=== PATIENT | female | born 1950 | race Caucasian/White ===

== ENCOUNTER → 2016-09-09 | Outpatient (CLI) | payer MEDICARE ==
[2016-09-09 15:16] LABS: ALT 51 U/L (9-52); AST 33 U/L (14-36); Blood Urea Nitrogen 14 mg/dL (7-17); C Reactive Protein <5.0 mg/L (<10.0); Non-African American GFR(MDRD) 56 (>60 ml/min/1.73 sqM)
[2016-09-09 17:20] LABS: Erythrocyte Sedimentation Rate 21 mm/hr (0-20)
[2016-09-10 00:04] LABS: Basophils # (A) 0.1 k/uL (0-0.2); Basophils % (A) 1 %; CHCM 33.1; Eosinophils # (A) 0.1 k/uL (0-0.7); Eosinophils % (A) 2 %; HCT 40.7 % (34.0-46.0); HDW 2.52; HGB 13.1 gm/dL (11.4-16.0); Luc # (Auto) 0.16; Luc % (Auto) 2; Lymphocytes # (A) 2.5 k/uL (1.0-4.8); Lymphocytes % (A) 34 %; MCH 29.4 pg (25.0-35.0); MCHC 32.3 g/dL (31.0-37.0); MCV 91.1 fL (80.0-100.0); Mean Platelet Volume 7.2; Monocytes # (A) 0.5 k/uL (0-1.0); Monocytes % (A) 6 %; Neutrophils # (A) 3.9 k/uL (1.3-7.7); Neutrophils % (A) 54 %; RBC 4.46 m/uL (3.80-5.40); WBC 7.2 k/uL (3.8-10.6); WBC (Perox) 7.16
== END | disposition home or self-care (01) ==
LOC: LABWHC1 14:38
PROVIDERS: ATTEND Internal Medicine Rheumatology
DX: N18.9 Chronic kidney disease, unspecified (principal); R77.0 Abnormality of albumin; M25.50 Pain in unspecified joint; Z79.1 Long term (current) use of non-steroidal anti-inflammatories (NSAID)
CPT/HCPCS: 36415; 82040; 82565; 84450; 84460; 84520; 85025; 85652; 86140

== ENCOUNTER → 2016-11-21 | Outpatient (CLI) | payer MEDICARE ==
[2016-11-21 11:53] LABS: Basophils # (A) 0.1 k/uL (0-0.2); Basophils % (A) 1 %; CH 31.2; CHCM 34.3; Eosinophils # (A) 0.2 k/uL (0-0.7); Eosinophils % (A) 3 %; HCT 37.9 % (34.0-46.0); HDW 2.68; HGB 12.8 gm/dL (11.4-16.0); Luc # (Auto) 0.13; Luc % (Auto) 2; Lymphocytes # (A) 1.9 k/uL (1.0-4.8); Lymphocytes % (A) 31 %; MCH 30.9 pg (25.0-35.0); MCHC 33.8 g/dL (31.0-37.0); MCV 91.2 fL (80.0-100.0); Mean Platelet Volume 6.2; Monocytes # (A) 0.3 k/uL (0-1.0); Monocytes % (A) 5 %; Neutrophils # (A) 3.7 k/uL (1.3-7.7); Neutrophils % (A) 59 %; RBC 4.15 m/uL (3.80-5.40); RDW 14.3 % (11.5-15.5); WBC 6.3 k/uL (3.8-10.6); WBC (Perox) 6.62
[2016-11-21 13:42] LABS: ALT 32 U/L (9-52); AST 21 U/L (14-36); Blood Urea Nitrogen 16 mg/dL (7-17); C Reactive Protein 6.7 mg/L (<10.0); Non-African American GFR(MDRD) 56 (>60 ml/min/1.73 sqM); Total Bilirubin 0.7 mg/dL (0.2-1.3)
[2016-11-21 14:54] LABS: Erythrocyte Sedimentation Rate 22 mm/hr (0-20)
== END | disposition home or self-care (01) ==
LOC: LABWHC1 11:18
PROVIDERS: ATTEND Internal Medicine Rheumatology
DX: D63.8 Anemia in other chronic diseases classified elsewhere (principal)
CPT/HCPCS: 36415; 82040; 82247; 82565; 84450; 84460; 84520; 85025; 85652; 86140

== ENCOUNTER → 2016-12-29 | Outpatient (CLI) | payer BC, MEDICARE ==
[2016-12-29 15:30] LABS: Basophils # (A) 0.1 k/uL (0-0.2); Basophils % (A) 1 %; CHCM 33.3; Eosinophils # (A) 0.2 k/uL (0-0.7); Eosinophils % (A) 3 %; HCT 38.3 % (34.0-46.0); HDW 2.59; HGB 12.7 gm/dL (11.4-16.0); Luc # (Auto) 0.12; Luc % (Auto) 2; Lymphocytes # (A) 1.7 k/uL (1.0-4.8); Lymphocytes % (A) 27 %; MCH 30.8 pg (25.0-35.0); MCV 93.3 fL (80.0-100.0); Mean Platelet Volume 6.5; Monocytes # (A) 0.3 k/uL (0-1.0); Monocytes % (A) 5 %; Neutrophils # (A) 3.8 k/uL (1.3-7.7); Neutrophils % (A) 62 %; RBC 4.11 m/uL (3.80-5.40); RDW 13.9 % (11.5-15.5); WBC 6.2 k/uL (3.8-10.6); WBC (Perox) 6.55
[2016-12-29 15:52] LABS: ALT 29 U/L (9-52); AST 21 U/L (14-36); Blood Urea Nitrogen 19 mg/dL (7-17); C Reactive Protein 9.4 mg/L (<10.0); Non-African American GFR(MDRD) 56 (>60 ml/min/1.73 sqM)
[2016-12-29 16:33] LABS: Erythrocyte Sedimentation Rate 26 mm/hr (0-20)
== END | disposition home or self-care (01) ==
LOC: LABWHC1 14:43
PROVIDERS: ATTEND Internal Medicine Rheumatology
DX: N18.9 Chronic kidney disease, unspecified (principal); R77.0 Abnormality of albumin; M25.50 Pain in unspecified joint; D63.8 Anemia in other chronic diseases classified elsewhere; Z79.1 Long term (current) use of non-steroidal anti-inflammatories (NSAID)
CPT/HCPCS: 36415; 82040; 82565; 84450; 84460; 84520; 85025; 85652; 86140

== ENCOUNTER → 2017-05-08 | Outpatient (CLI) | payer MEDICARE ==
[2017-05-08 13:24] LABS: Basophils # (A) 0.1 k/uL (0-0.2); Basophils % (A) 1 %; CH 30.2; CHCM 32.1; Eosinophils # (A) 0.2 k/uL (0-0.7); Eosinophils % (A) 2 %; HCT 39.8 % (34.0-46.0); HGB 12.4 gm/dL (11.4-16.0); Luc # (Auto) 0.09; Luc % (Auto) 1; Lymphocytes # (A) 1.2 k/uL (1.0-4.8); Lymphocytes % (A) 18 %; MCH 29.4 pg (25.0-35.0); MCHC 31.1 g/dL (31.0-37.0); MCV 94.6 fL (80.0-100.0); Mean Platelet Volume 6.6; Monocytes # (A) 0.3 k/uL (0-1.0); Monocytes % (A) 5 %; Neutrophils # (A) 4.9 k/uL (1.3-7.7); Neutrophils % (A) 73 %; RBC 4.21 m/uL (3.80-5.40); RDW 14.5 % (11.5-15.5); WBC 6.8 k/uL (3.8-10.6); WBC (Perox) 7.44
[2017-05-08 13:35] LABS: ALT 34 U/L (9-52); AST 18 U/L (14-36); Blood Urea Nitrogen 20 mg/dL (7-17); C Reactive Protein 9.2 mg/L (<10.0); Calcium 9.8 mg/dL (8.4-10.2); Non-African American GFR(MDRD) 55 (>60 ml/min/1.73 sqM)
[2017-05-08 17:44] LABS: Erythrocyte Sedimentation Rate 25 mm/hr (0-20)
== END | disposition home or self-care (01) ==
LOC: LABWHC1 12:15
PROVIDERS: ATTEND Internal Medicine Rheumatology
DX: L40.50 Arthropathic psoriasis, unspecified (principal); M25.50 Pain in unspecified joint; N18.9 Chronic kidney disease, unspecified; E55.9 Vitamin D deficiency, unspecified; E21.0 Primary hyperparathyroidism; R77.0 Abnormality of albumin; Z79.1 Long term (current) use of non-steroidal anti-inflammatories (NSAID)
CPT/HCPCS: 36415; 82040; 82306; 82310; 82565; 83970; 84450; 84460; 84520; 85025; 85652; 86140

== ENCOUNTER → 2018-10-07 | Outpatient (CLI) | payer MEDICARE ==
--- NOTE | 2018-10-08 03:58 | MR ---
EXAMINATION TYPE: MR brain wo con DATE OF EXAM: 10/07/2018 COMPARISON: NONE HISTORY: 68-year-old female Fluid imbalance / Dizziness TECHNIQUE: Multiplanar, multisequence images of the brain and brainstem were acquired without IV con trast. Diffusion weighted imaging is performed. FINDINGS: No evidence for acute infarction, hemorrhage, mass, mass effect, midline shift, herniation, effacemen t of basal cisterns, or extra-axial fluid collection. The ventricles and sulci are age-appropriate with mild generalized supratentorial volume loss.. Major intracranial flow voids are intact. T2/FLAIR weighted sequences show moderate patchy and confluent bright white matter change in the subc ortical, deep, and periventricular regions of both cerebral hemispheres. Additional patchy bright sig nal changes present in the bilateral paramedian tania. Normal variation with persistent CSP. Midline structures otherwise demonstrate normal morphology. Th e craniocervical junction is normal. Mild mucosal thickening throughout the ethmoid air cells and trace within the maxillary sinuses. Ther e is trapped fluid in the left mastoid air cells. Globes appear intact. IMPRESSION: 1. No acute intracranial abnormality seen. 2. Moderate patchy and confluent T2 bright white matter change, nonspecific, likely relating to moder ate to severe burden of chronic small vessel ischemic disease. 3. Trapped fluid in the left mastoid air cells. Correlate for any mastoid pain to exclude mastoiditis .
== END ==
LOC: RADMRIMAIN 15:41
PROVIDERS: ATTEND Family Medicine
DX: R90.89 Other abnormal findings on diagnostic imaging of central nervous system (principal)
CPT/HCPCS: 70551

== ENCOUNTER → 2019-06-24 | Outpatient (CLI) | payer MEDICARE ==
--- NOTE | 2019-06-27 09:08 | MM ---
Reason for exam: screening (asymptomatic). Last mammogram was performed 4 years and 4 months ago. History: Patient is postmenopausal. Family history of breast cancer in 2 maternal aunts at age 50. Benign MG stereo VAD BX LT of the left breast, August 25, 2014. Physical Findings: A clinical breast exam by your physician is recommended on an annual basis and results should be correlated with mammographic findings. MG 3D Screening Mammo W/Cad Bilateral CC and MLO view(s) were taken. Prior study comparison: February 19, 2015, left breast MG diagnostic mammo LT w CAD. July 27, 2014, left breast MG work up mamm w CAD LT. There are scattered fibroglandular densities. Benign appearing bilateral calcifications. No suspicious abnormality. Left surgical clip noted. No significant changes when compared with prior studies. ASSESSMENT: Benign, BI-RAD 2 RECOMMENDATION: Routine screening mammogram of both breasts in 1 year.
== END | disposition home or self-care (01) ==
LOC: RADMAMWWP 10:11
PROVIDERS: ATTEND Family Medicine
DX: Z12.31 Encounter for screening mammogram for malignant neoplasm of breast (principal)
CPT/HCPCS: 77063; 77067

== ENCOUNTER → 2024-07-28 | Outpatient (CLI) | payer MEDICARE ==
--- NOTE | 2024-08-02 13:30 | MM ---
Reason for Exam: Screening (asymptomatic). Last mammogram was performed 5 year(s) and 1 month(s) ago. Patient History: Menarche at age 14. First Full-Term at age 27. Postmenopausal. Patient used Hormonal Contraceptives for 4 years. 08/25/2014, Benign Core Biopsy on the left side. Maternal aunt had breast cancer, age 50. Maternal aunt had breast cancer, age 50. Risk Values: Anika 5 year model risk: 2.3%. NCI Lifetime model risk: 5.7%. Prior Study Comparison: 07/27/2014 Left Diagnostic Mammogram, [facility]. 02/19/2015 Left Diagnostic Mammogram, [facility]. 06/24/2019 Bilateral Screening Mammogram, [facility]. Tissue Density: There are scattered areas of fibroglandular density. Findings: Analyzed By CAD. Microclip left breast from prior biopsy. Scattered benign calcifications are unchanged. There is no suspicious group of microcalcifications or new suspicious mass in either breast. Overall Assessment: Benign, BI-RAD 2 Management: Screening Mammogram of both breasts in 1 year. . Patient should continue monthly self-breast exams. A clinical breast exam by your physician is recommended on an annual basis. This exam should not preclude additional follow-up of suspicious palpable abnormalities. Note on Anika scores and lifetime risk: 1. A Anika score greater than 3% is considered moderate risk. If this is the case, consider specialist referral to assess eligibility for a risk reducing agent. 2. If overall lifetime risk for the development of breast cancer is 20% or higher, the patient may qualify for future screening with alternating mammogram and breast MRI. [facility], , 08/02/2024 1:28 PM. Electronically signed and approved by: Deborah Buchanan M.D. Radiologist
== END | disposition home or self-care (01) ==
LOC: RADMAMWWP 15:44
PROVIDERS: ATTEND Family Medicine
DX: Z12.31 Encounter for screening mammogram for malignant neoplasm of breast (principal); Z78.0 Asymptomatic menopausal state; Z80.3 Family history of malignant neoplasm of breast; R92.323 Mammographic fibroglandular density, bilateral breasts; Z98.82 Breast implant status
CPT/HCPCS: 77063; 77067